=== PATIENT | female | born 2000 | race Caucasian/White ===

== ENCOUNTER 2020-08-29 18:20 | Emergency (ER) | payer MEDICAID ==
[~2020-08-29] VITALS: Ht 167.6 cm; Wt 63.5 kg
--- NOTE | 2020-08-29 19:14 | NUR ---
patient came in to the er c/o LUQ abdominal pain since last night. On room air, breathing evenly and unlabored. Kept comfortable, will continue to monitor accordingly.
[2020-08-29 19:31] LABS: BASOPHILS # (AUTO) 0.1 /CMM (0.0-0.2); BASOPHILS % (AUTO) 1.6 % (0.0-2.0); HEMATOCRIT 39 % (33-45); HEMOGLOBIN 12.9 g/dL (11.5-14.8); LYMPHOCYTES # (AUTO) 1.6 /CMM (0.8-4.8); LYMPHOCYTES % (AUTO) 18.4 % (20.0-44.0); MEAN CORPUSCULAR HGB CONC 33 g/dl (31.0-36.0); MEAN CORPUSCULAR VOLUME 83 fL (82-100); MONOCYTES # (AUTO) 0.6 /CMM (0.1-1.30); MONOCYTES % (AUTO) 6.7 % (2.0-12.0); NEUTROPHILS # (AUTO) 6.2 /CMM (1.8-8.9); NEUTROPHILS % (AUTO) 72.3 % (43.0-81.0); PLATELET COUNT (AUTO) 273 /CMM (150-450); RED BLOOD CELL COUNT(AUTO) 4.72 MIL/uL (4.0-5.2); WHITE BLOOD COUNT (AUTO) 8.6 K/uL (4.3-11.0)
[2020-08-29 19:37] LABS: CALCIUM, SERUM 9.3 mg/dL (8.5-10.1); CREATININE 0.8 mg/dL (0.6-1.3); POTASSIUM 4.2 mmol/L (3.5-5.1)
[2020-08-29 19:43] LABS: ALBUMIN 4.2 g/dL (3.4-5.0); BILIRUBIN,DIRECT 0.1 mg/dL (0.0-0.2); BILIRUBIN,TOTAL 0.5 mg/dL (0.2-1.0); TOTAL PROTEIN, SERUM 8.3 g/dL (6.4-8.2)
[2020-08-29 20:04] LABS: BILIRUBIN,URINE Negative (NEGATIVE); COLOR,URINE YELLOW (YELLOW); LEUKOCYTE ESTERASE ,URINE Small (NEGATIVE); NITRITE, URINE Negative (NEGATIVE); PROTEIN,URINE Negative (NEGATIVE); UGLUCOSE Negative (NEGATIVE); UROBILINOGEN,URINE 0.2 EU/dL (0.2)
[2020-08-29 20:05] LABS: BACTERIA,URINE 1+ /HPF (None Seen); SQUAMOUS EPITHELIAL CELL,UR Few /HPF (None Seen)
[2020-08-29] MEDS ORDERED: PHEN-705 PO (20:17)
[2020-08-29] MEDS ORDERED: CEPH500C2 PO (20:17)
--- NOTE | 2020-08-29 20:39 | NUR ---
Patient discharged to home in stable condition. Written and verbal after care instructions given. Patient verbalizes understanding of instruction.Patient is awake and alert to self, day, and place. pt tambulatory with a steady gait
[2020-08-29 21:50] VITALS: BP 119/60
== END 2020-08-29 21:50 | disposition home or self-care (01) ==
LOC: ER 18:27
DX: N39.0 Urinary tract infection, site not specified (principal); Z79.899 Other long term (current) drug therapy
CPT/HCPCS: 36415; 71045-TC; 80048-TC; 80076-TC; 81001; 83690-TC; 84703-TC; 85025-TC; 87086-TC

== ENCOUNTER 2020-09-07 14:45 | Emergency (ER) | payer MEDICAID ==
[~2020-09-07] VITALS: Ht 167.6 cm; Wt 68.0 kg
[~2020-09-07 14:45] MED LIST: CEPH500C2 PO; PHEN-705 PO
--- NOTE | 2020-09-07 15:02 | NUR ---
BIBS FROM HOME TO ER BED 16. AAOX4. NOT IN RESP DISTRESS. AMBULATORY. CAME IN FOR CP AND PALPITATION FOR THE PAST WEEK. CP IS MID SETERNAL NON RADIATING PRESSURE. PT IS NOTED WITH HR OF 112. PT DO APPEAR ANXIOUS. AWAITING MD FOR EVAL.
[2020-09-07] MEDS ORDERED: LORAZEPAM INJ 2 MG/ML VIAL ONE (16:22)
[2020-09-07] MEDS ORDERED: LORAZEPAM INJ 2 MG/ML VIAL IM ONE (16:30)
[2020-09-07] MEDS ORDERED: POLY17PO4 PO (16:53)
[2020-09-07] MEDS ORDERED: ESCI5TAB PO (16:53)
[2020-09-07] MEDS ORDERED: DOCU-141 PO (16:53)
--- NOTE | 2020-09-07 16:59 | NUR ---
Patient discharged to home in stable condition. Written and verbal after care instructions given. Patient verbalizes understanding of instruction. Pt ambulatory with a steady gait
[2020-09-07 17:00] VITALS: BP 126/83
[2020-09-08] MEDS ORDERED: LORA-259 PO (18:18)
== END 2020-09-07 17:00 | disposition home or self-care (01) ==
LOC: ER 14:48
DX: F41.0 Panic disorder [episodic paroxysmal anxiety] (principal); K59.00 Constipation, unspecified; Z79.899 Other long term (current) drug therapy
CPT/HCPCS: 93005; 96372; 99283; J2060

== ENCOUNTER 2020-09-08 16:28 | Emergency (ER) | payer MEDICAID ==
[~2020-09-08] VITALS: Ht 167.6 cm; Wt 68.0 kg
[~2020-09-08 16:28] MED LIST changes: +DOCU-141 PO; +ESCI5TAB PO; +POLY17PO4 PO
--- NOTE | 2020-09-08 17:00 | NUR ---
CHEST PAIN W/ SOB & NAUSEA X 4 DAYS. PT AAOX4, VSS. RR EVEN & UNLABORED. DENIES DIZZINESS, WEAKNESS AT THIS TIME. PLACED ON ANTIQUE FURNITURE RESTORER, SR. PT SEEN & EVAL'D BY DR. ROSALES. WILL CONT TO MONITOR.
[2020-09-08 17:12] LABS: BASOPHILS % (AUTO) 0.5 % (0.0-2.0); EOSINOPHILS % (AUTO) 0.4 % (0.0-6.0); HEMATOCRIT 41 % (33-45); HEMOGLOBIN 13.7 g/dL (11.5-14.8); LYMPHOCYTES % (AUTO) 25.9 % (20.0-44.0); MEAN CORPUSCULAR HGB CONC 33 g/dl (31.0-36.0); MEAN CORPUSCULAR VOLUME 83 fL (82-100); MONOCYTES # (AUTO) 0.6 /CMM (0.1-1.30); MONOCYTES % (AUTO) 7.4 % (2.0-12.0); NEUTROPHILS % (AUTO) 65.8 % (43.0-81.0); PLATELET COUNT (AUTO) 247 /CMM (150-450); RED BLOOD CELL COUNT(AUTO) 5.02 MIL/uL (4.0-5.2); WHITE BLOOD COUNT (AUTO) 7.7 K/uL (4.3-11.0)
[2020-09-08 17:32] LABS: CARBON DIOXIDE 26 mmol/L (21-32); CHLORIDE 103 mmol/L (98-107); CREATININE 0.9 mg/dL (0.6-1.3); GLUCOSE 84 mg/dL (74-106); POTASSIUM 3.8 mmol/L (3.5-5.1); SODIUM SERUM 140 mmol/L (136-145); UREA NITROGEN, BLOOD 9 mg/dL (7-18)
--- NOTE | 2020-09-08 17:55 | NUR ---
COVID TEST DONE & SENT TO LAB.
[2020-09-08] MEDS ORDERED: LORAZEPAM 1 MG TABLET ONE (18:13)
[2020-09-08] MEDS ORDERED: LORA-259 PO (18:18)
[2020-09-08 18:26] VITALS: BP 120/85
[2020-09-08] MEDS ORDERED: LORAZEPAM 1 MG TABLET PO ONE (18:30)
== END 2020-09-08 18:27 | disposition home or self-care (01) ==
LOC: ER 16:36
DX: R06.00 Dyspnea, unspecified (principal); Z20.822 Contact with and (suspected) exposure to COVID-19; F41.9 Anxiety disorder, unspecified; Z86.16 Personal history of COVID-19; M41.9 Scoliosis, unspecified
CPT/HCPCS: 36415; 71045; 80048; 84484; 85025; 93005; 99285; C9803; U0003

== ENCOUNTER 2020-09-10 16:56 | Emergency (ER) | payer MEDICAID ==
[~2020-09-10] VITALS: Ht 170.2 cm; Wt 74.8 kg
[~2020-09-10 16:56] MED LIST changes: +LORA-259 PO
--- NOTE | 2020-09-10 16:56 | NUR ---
PT BIB SELF C/O LOWER ABDOMINAL PAIN FOR 1 WEEK, PT IS AAOX4, NOT IN RESPIRATORY DISTRESS, V/S STABLE, KEPT RESTED AND COMFORTABLE. WILL CONTINUE TO MONITOR.
--- NOTE | 2020-09-10 17:13 | NUR ---
SEEN AND EXAMINED BY COLBY GAMA.
--- NOTE | 2020-09-10 17:23 | NUR ---
IV LINE ESTABLISHED BLOOD DRAWN AND SENT TO LAB.
--- NOTE | 2020-09-10 17:27 | NUR ---
URINE SPECIMEN COLLECTED AND SENT TO LAB.
[2020-09-10] MEDS ORDERED: IV NS 0.9% 1,000 ML BAG IV ONE (17:30)
[2020-09-10 17:43] LABS: BASOPHILS % (AUTO) 0.5 % (0.0-2.0); EOSINOPHILS % (AUTO) 0.3 % (0.0-6.0); HEMATOCRIT 39 % (33-45); HEMOGLOBIN 12.7 g/dL (11.5-14.8); LYMPHOCYTES # (AUTO) 1.7 /CMM (0.8-4.8); LYMPHOCYTES % (AUTO) 21.4 % (20.0-44.0); MEAN CORPUSCULAR HGB CONC 33 g/dl (31.0-36.0); MEAN CORPUSCULAR VOLUME 83 fL (82-100); MONOCYTES # (AUTO) 0.5 /CMM (0.1-1.30); MONOCYTES % (AUTO) 6.4 % (2.0-12.0); NEUTROPHILS # (AUTO) 5.7 /CMM (1.8-8.9); NEUTROPHILS % (AUTO) 71.4 % (43.0-81.0); PLATELET COUNT (AUTO) 210 /CMM (150-450); RED BLOOD CELL COUNT(AUTO) 4.71 MIL/uL (4.0-5.2)
[2020-09-10 17:52] LABS: CREATININE 0.9 mg/dL (0.6-1.3)
[2020-09-10 18:05] LABS: ALBUMIN 3.9 g/dL (3.4-5.0); BILIRUBIN,DIRECT 0.1 mg/dL (0.0-0.2); BILIRUBIN,TOTAL 0.6 mg/dL (0.2-1.0); TOTAL PROTEIN, SERUM 7.7 g/dL (6.4-8.2)
--- NOTE | 2020-09-10 18:25 | NUR ---
PT IS WHEELED TO CT SCAN VIA [facility].
[2020-09-10] MEDS ORDERED: IOHEXOL-300 100 ML VIAL IV ONE (18:27)
[2020-09-10] MEDS ORDERED: CT SWABBABLE VALVE TRANS SET 1 EA INFUS.SET MC ONE (18:27)
[2020-09-10] MEDS ORDERED: IV NS 0.9% 250 ML IV ONE (18:27)
--- NOTE | 2020-09-10 19:00 | NUR ---
CHANEL GAMA AT BEDSIDE FOR PELVIC EXAM
--- NOTE | 2020-09-10 19:09 | NUR ---
REPORT GIVEN TO ROSA GRIFFIN FOR ABRIL
[2020-09-10] MEDS ORDERED: FAMO-131 PO (19:10)
[2020-09-10] MEDS ORDERED: ONDA4TAB11 PO (19:10)
--- NOTE | 2020-09-10 19:10 | NUR ---
SPECIMEN SENT TO LAB
[2020-09-10 19:29] VITALS: BP 129/71
--- NOTE | 2020-09-10 19:29 | NUR ---
Patient discharged to home in stable condition. Written and verbal after care instructions given. Patient verbalizes understanding of instruction and RX. Pt ambulated out of ED. VSS.
--- NOTE | 2020-09-10 19:29 | NUR ---
IV removed. Catheter intact and site benign. Pressure and 4x4 applied to site. No bleeding noted.
== END 2020-09-10 19:29 | disposition home or self-care (01) ==
LOC: ER 16:58
DX: N72 Inflammatory disease of cervix uteri (principal); K29.70 Gastritis, unspecified, without bleeding; N83.8 Other noninflammatory disorders of ovary, fallopian tube and broad ligament; F10.10 Alcohol abuse, uncomplicated; Y90.9 Presence of alcohol in blood, level not specified; Z79.899 Other long term (current) drug therapy
CPT/HCPCS: 74177; 76856; 80048; 80076; 84702; 84703; 85025; 87210; 87491 ×2; 87591 ×2; 96360; 99285; J7030 ×2; J7050; Q9967

== ENCOUNTER 2020-10-12 16:14 | Emergency (ER) | payer MEDICAID ==
[~2020-10-12] VITALS: Ht 167.6 cm; Wt 63.5 kg
[~2020-10-12 16:14] MED LIST changes: +FAMO-131 PO; +ONDA4TAB11 PO
[2020-10-12 16:49] VITALS: BP 148/86
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
--- NOTE | 2020-10-12 17:12 | NUR ---
CALLED [phone] PT STATES THAT SHE DOES NOT WISH TO REPORT. [employer] ADVISED TO CALL BACK IF SHE CHANGES HER MIND.
[2020-10-12] MEDS ORDERED: PHEN15SP NS (17:22)
--- NOTE | 2020-10-12 18:03 | NUR ---
Patient discharged to home in stable condition. Written and verbal after care instructions given. Patient verbalizes understanding of instruction. Pt ambulatory with a steady gait
== END 2020-10-12 18:05 | disposition home or self-care (01) ==
LOC: ER 16:19
DX: S00.83XA Contusion of other part of head, initial encounter (principal); R04.0 Epistaxis; Z79.899 Other long term (current) drug therapy; W22.8XXA Striking against or struck by other objects, initial encounter; Y93.89 Activity, other specified; Y92.89 Other specified places as the place of occurrence of the external cause; Y99.8 Other external cause status

== ENCOUNTER 2020-11-12 23:00 | Emergency (ER) | payer MEDICAID ==
[~2020-11-12] VITALS: Ht 167.6 cm; Wt 65.8 kg
[2020-11-12 23:00] VITALS: BP 127/74
[~2020-11-12 23:00] MED LIST changes: +PHEN15SP NS
[2020-11-12] MEDS ORDERED: ONDANSETRON 4 MG TAB.RAPDIS ONE (23:43)
[2020-11-12] MEDS ORDERED: CLIN300C12 PO (23:44)
[2020-11-12] MEDS ORDERED: ONDA4TAB5 PO (23:44)
[2020-11-13] MEDS ORDERED: ONDANSETRON 4 MG TAB.RAPDIS SL ONE
[2020-11-13] MEDS ORDERED: LORA10TA7 PO (20:30)
== END 2020-11-12 23:51 | disposition home or self-care (01) ==
LOC: ER 23:01
DX: R11.0 Nausea (principal); K08.89 Other specified disorders of teeth and supporting structures; Z79.899 Other long term (current) drug therapy
CPT/HCPCS: 99283; Q0162

== ENCOUNTER 2020-11-13 19:20 | Emergency (ER) | payer MEDICAID ==
[~2020-11-13] VITALS: Ht 167.6 cm; Wt 65.8 kg
[2020-11-13 19:20] VITALS: BP 118/72
[~2020-11-13 19:20] MED LIST changes: +CLIN300C12 PO; +ONDA4TAB5 PO
[2020-11-13] MEDS ORDERED: LORA10TA7 PO (20:30)
--- NOTE | 2020-11-13 20:50 | NUR ---
Patient discharged to home in stable condition. Written and verbal after care instructions given. Patient verbalizes understanding of instruction. Pt ambulatory with a steady gait
== END 2020-11-13 20:52 | disposition home or self-care (01) ==
LOC: ER 19:22
DX: J02.9 Acute pharyngitis, unspecified (principal); Z79.899 Other long term (current) drug therapy

== ENCOUNTER 2020-12-09 20:03 | Emergency (ER) | payer MEDICAID ==
[~2020-12-09] VITALS: Ht 167.6 cm; Wt 68.0 kg
[~2020-12-09 20:03] MED LIST changes: +LORA10TA7 PO
[2020-12-09 20:05] VITALS: BP 110/63
[2020-12-09 20:56] LABS: BILIRUBIN,URINE Negative (NEGATIVE); COLOR,URINE YELLOW (YELLOW); LEUKOCYTE ESTERASE ,URINE Negative (NEGATIVE); NITRITE, URINE Negative (NEGATIVE); PROTEIN,URINE Negative (NEGATIVE); UGLUCOSE Negative (NEGATIVE); UROBILINOGEN,URINE 0.2 EU/dL (0.2)
[2020-12-09] MEDS ORDERED: ONDANSETRON HCL 4 MG/5 ML SOLUTION PO ONE (21:00)
[2020-12-09] MEDS ORDERED: SULFAMETH/TRIMETH 800/160 MG 1 UDTAB TABLET PO ONE (21:00)
[2020-12-09] MEDS ORDERED: ONDANSETRON 4 MG TAB.RAPDIS ONE (21:03)
[2020-12-09] MEDS ORDERED: SULFAMETH/TRIMETH 800/160 MG 1 UDTAB TABLET ONE (21:04)
[2020-12-09 21:07] LABS: BACTERIA,URINE Rare /HPF (None Seen); WBC,URINE 0-2 /HPF (0-3)
[2020-12-09] MEDS ORDERED: ONDA4TAB11 PO (21:22)
[2020-12-09] MEDS ORDERED: SULF1TAB48 PO (21:22)
== END 2020-12-09 21:34 | disposition home or self-care (01) ==
LOC: ER 20:09
DX: N12 Tubulo-interstitial nephritis, not specified as acute or chronic (principal); Z79.899 Other long term (current) drug therapy
CPT/HCPCS: 81001; 84703; 99283; Q0162

== ENCOUNTER 2021-01-29 14:47 | Emergency (ER) | payer MEDICAID ==
[~2021-01-29] VITALS: Ht 167.6 cm; Wt 65.8 kg
[~2021-01-29 14:47] MED LIST changes: +SULF1TAB48 PO
[2021-01-29 15:03] VITALS: BP 137/73
[2021-01-29 16:05] LABS: BILIRUBIN,URINE NEGATIVE (NEGATIVE); COLOR,URINE YELLOW (YELLOW); LEUKOCYTE ESTERASE ,URINE SMALL (NEGATIVE); NITRITE, URINE NEGATIVE (NEGATIVE); PROTEIN,URINE NEGATIVE (NEGATIVE); UGLUCOSE NEGATIVE (NEGATIVE); UROBILINOGEN,URINE 0.2 EU/dL (0.2)
[2021-01-29 16:12] LABS: BACTERIA,URINE RARE /HPF (None Seen); RBC,URINE 0-2 /HPF (0-2)
--- NOTE | 2021-01-29 16:29 | NUR ---
Patient discharged to home in stable condition. Written and verbal after care instructions given. Patient verbalizes understanding of instruction.
== END 2021-01-29 16:29 | disposition home or self-care (01) ==
LOC: ER 14:53
DX: B27.90 Infectious mononucleosis, unspecified without complication (principal); R10.12 Left upper quadrant pain; Z79.899 Other long term (current) drug therapy
CPT/HCPCS: 81001; 87086-TC

== ENCOUNTER 2021-02-10 17:00 | Emergency (ER) | payer MEDICAID ==
[~2021-02-10] VITALS: Ht 165.1 cm; Wt 65.8 kg
--- NOTE | 2021-02-10 17:31 | NUR ---
The patient is bibs for c/o lower abdominal pain/pelvic. The patient states having an ovarian cyst. Rates pain 4/10. In room air and denies SOB. Respiration regular and unlabored. Will continue to monitor the patient.
[2021-02-10 17:47] LABS: BILIRUBIN,URINE Negative (NEGATIVE); COLOR,URINE YELLOW (YELLOW); LEUKOCYTE ESTERASE ,URINE Small (NEGATIVE); NITRITE, URINE Negative (NEGATIVE); PH,URINE 7.5 (5.0-8.0); PROTEIN,URINE Negative (NEGATIVE); UGLUCOSE Negative (NEGATIVE)
[2021-02-10 17:51] LABS: BASOPHILS % (AUTO) 0.4 % (0.0-2.0); CALCIUM, SERUM 8.5 mg/dL (8.5-10.1); CREATININE 0.7 mg/dL (0.6-1.3); EOSINOPHILS % (AUTO) 1.2 % (0.0-6.0); HEMATOCRIT 36 % (33-45); HEMOGLOBIN 12.1 g/dL (11.5-14.8); LYMPHOCYTES % (AUTO) 23.6 % (20.0-44.0); MEAN CORPUSCULAR HGB CONC 34 g/dl (31.0-36.0); MEAN CORPUSCULAR VOLUME 87 fL (82-100); MONOCYTES # (AUTO) 0.6 K/uL (0.1-1.30); MONOCYTES % (AUTO) 7.4 % (2.0-12.0); NEUTROPHILS # (AUTO) 5.8 K/uL (1.8-8.9); NEUTROPHILS % (AUTO) 67.4 % (43.0-81.0); PLATELET COUNT (AUTO) 213 K/uL (150-450); POTASSIUM 3.7 mmol/L (3.5-5.1); RED BLOOD CELL COUNT(AUTO) 4.07 MIL/uL (4.0-5.2); WHITE BLOOD COUNT (AUTO) 8.7 K/uL (4.3-11.0)
[2021-02-10 18:03] LABS: BACTERIA,URINE Many /HPF (None Seen); SQUAMOUS EPITHELIAL CELL,UR Many /HPF (None Seen)
[2021-02-10 18:04] LABS: RBC,URINE 0-2 /HPF (0-2)
--- NOTE | 2021-02-10 19:05 | NUR ---
REC'D REPORT FROM LIA. GRIFFIN FOR ABRIL
--- NOTE | 2021-02-10 19:24 | NUR ---
CALLED CHRISTO TO HAVE IMAGES READ
[2021-02-10] MEDS ORDERED: CEPH500C2 PO (19:39)
--- NOTE | 2021-02-10 19:55 | NUR ---
Patient discharged to home in stable condition. Written and verbal after care instructions given. Patient verbalizes understanding of instruction. Pt ambulatory with a steady gait
[2021-02-10 20:01] VITALS: BP 115/70
== END 2021-02-10 19:55 | disposition home or self-care (01) ==
LOC: ER 17:04
DX: O20.0 Threatened abortion (principal); N39.0 Urinary tract infection, site not specified; Z79.899 Other long term (current) drug therapy; Z3A.01 Less than 8 weeks gestation of pregnancy
CPT/HCPCS: 36415; 76805-TC; 80048-TC; 81001; 84702-TC; 85025-TC; 87086-TC

== ENCOUNTER 2021-02-18 02:10 | Emergency (ER) | payer MEDICAID ==
[~2021-02-18] VITALS: Ht 165.1 cm; Wt 65.8 kg
[2021-02-18 02:10] VITALS: BP 114/68
== END 2021-02-18 04:50 | disposition home or self-care (01) ==
LOC: ER 02:17
DX: J39.2 Other diseases of pharynx (principal); R10.9 Unspecified abdominal pain; Z79.899 Other long term (current) drug therapy

== ENCOUNTER 2021-03-31 17:44 | Emergency (ER) | payer BC, OTHER ==
[~2021-03-31] VITALS: Ht 167.6 cm; Wt 65.8 kg
[2021-03-31 18:39] VITALS: BP 133/75
[2021-03-31] MEDS ORDERED: AMOX-430 PO (19:11)
== END 2021-03-31 19:17 | disposition home or self-care (01) ==
LOC: ER 17:46
DX: K08.89 Other specified disorders of teeth and supporting structures (principal); F10.10 Alcohol abuse, uncomplicated; Y90.9 Presence of alcohol in blood, level not specified; Z79.899 Other long term (current) drug therapy

== ENCOUNTER 2021-05-27 20:16 | Emergency (ER) | payer BC, OTHER ==
[~2021-05-27] VITALS: Ht 167.6 cm; Wt 71.7 kg
[~2021-05-27 20:16] MED LIST changes: +AMOX-430 PO
--- NOTE | 2021-05-27 20:40 | NUR ---
PT BIBS C/O INTERMITTENT ABD PAIN 01/21, PT IS ON MONITOR, VSS.
[2021-05-27 20:51] LABS: BILIRUBIN,URINE Negative (NEGATIVE); COLOR,URINE YELLOW (YELLOW); LEUKOCYTE ESTERASE ,URINE Small (NEGATIVE); NITRITE, URINE Negative (NEGATIVE); PH,URINE 5.5 (5.0-8.0); PROTEIN,URINE Negative (NEGATIVE); UGLUCOSE Negative (NEGATIVE); UROBILINOGEN,URINE 0.2 EU/dL (0.2)
[2021-05-27 21:07] LABS: BACTERIA,URINE None seen /HPF (None Seen); MUCUS,URINE Few /LPF (None Seen); RBC,URINE 0-2 /HPF (0-2); SQUAMOUS EPITHELIAL CELL,UR Moderate /HPF (None Seen); URINE AMORPHOUS URATE Few /HPF (None Seen)
[2021-05-27] MEDS ORDERED: CEPH500T PO (22:08)
[2021-05-27 22:18] VITALS: BP 133/70
--- NOTE | 2021-05-27 22:18 | NUR ---
Patient discharged to home in stable condition. Written and verbal after care instructions given. Patient verbalizes understanding of instruction.
== END 2021-05-27 22:18 | disposition home or self-care (01) ==
LOC: ER 20:18
DX: N39.0 Urinary tract infection, site not specified (principal); Z79.899 Other long term (current) drug therapy
CPT/HCPCS: 76856-TC; 81001; 84703-TC; 87086-TC

== ENCOUNTER 2021-08-03 18:47 | Emergency (ER) | payer BC, MEDICAID, OTHER ==
[~2021-08-03] VITALS: Ht 167.6 cm; Wt 63.5 kg
[~2021-08-03 18:47] MED LIST changes: +CEPH500T PO
--- NOTE | 2021-08-03 19:07 | NUR ---
PT BIBSELF FROM HOME L SIDED SHARP HEAD PAIN SINCE AST NIGHT, +NAUSEA. TENSION HEADACHE X 1WEEK
[2021-08-03] MEDS ORDERED: KETOROLAC TROMETHAMINE INJ 30 MG/ML VIAL IM ONE (20:30)
[2021-08-03] MEDS ORDERED: KETOROLAC TROMETHAMINE INJ 30 MG/ML VIAL ONE (20:38)
[2021-08-03] MEDS ORDERED: IBUPROFEN 600 MG TABLET ONE (20:43)
[2021-08-03] MEDS ORDERED: IBUPROFEN 600 MG TABLET PO ONE (21:00)
[2021-08-03 21:14] LABS: BILIRUBIN,URINE NEGATIVE (NEGATIVE); COLOR,URINE YELLOW (YELLOW); LEUKOCYTE ESTERASE ,URINE SMALL (NEGATIVE); NITRITE, URINE NEGATIVE (NEGATIVE); PROTEIN,URINE NEGATIVE (NEGATIVE); UGLUCOSE NEGATIVE (NEGATIVE); UROBILINOGEN,URINE 0.2 EU/dL (0.2)
[2021-08-03 21:33] LABS: BACTERIA,URINE 1+ /HPF (None Seen); RBC,URINE 0-2 /HPF (0-2)
[2021-08-03] MEDS ORDERED: AMOX-430 PO (22:00)
[2021-08-03] MEDS ORDERED: IBUP-1955 PO (22:01)
--- NOTE | 2021-08-03 22:24 | NUR ---
Patient discharged to home in stable condition. Written and verbal after care instructions given. Patient verbalizes understanding of instruction. PT ambulatory with a steady gait
[2021-08-03 22:26] VITALS: BP 126/77
--- NOTE | 2021-08-04 00:01 | NUR ---
Alex quezada in [facility] - 08/04/21 at 0001 by STACEY Patient discharged to home in stable condition. Written and verbal after care instructions given. Patient verbalizes understanding of instruction.
== END 2021-08-04 00:02 | disposition home or self-care (01) ==
LOC: ER 18:56
DX: G44.209 Tension-type headache, unspecified, not intractable (principal); N39.0 Urinary tract infection, site not specified; K02.9 Dental caries, unspecified; Z20.822 Contact with and (suspected) exposure to COVID-19; Z79.899 Other long term (current) drug therapy
CPT/HCPCS: 81001; 84703; 87086; 87426; 99283; C9803; J1885

== ENCOUNTER 2021-08-13 11:46 | Emergency (ER) | payer MEDICAID ==
[~2021-08-13] VITALS: Ht 167.6 cm; Wt 63.5 kg
[~2021-08-13 11:46] MED LIST changes: +IBUP-1955 PO
--- NOTE | 2021-08-13 12:18 | NUR ---
URINE SPECIMEN COLLECTED AND SENT TO LAB.
--- NOTE | 2021-08-13 12:22 | NUR ---
AT BEDSIDE FOR EVAL.
[2021-08-13] MEDS ORDERED: IV NS 0.9% 1,000 ML BAG IV ONE (12:30)
[2021-08-13] MEDS ORDERED: ONDANSETRON HCL/PF 4 MG/2 ML VIAL IVP ONE (12:30)
[2021-08-13] MEDS ORDERED: ONDANSETRON HCL/PF 4 MG/2 ML VIAL ONE (12:30)
[2021-08-13 12:38] LABS: BILIRUBIN,URINE NEGATIVE (NEGATIVE); COLOR,URINE YELLOW (YELLOW); LEUKOCYTE ESTERASE ,URINE TRACE (NEGATIVE); NITRITE, URINE NEGATIVE (NEGATIVE); PH,URINE 8.5 (5.0-8.0); PROTEIN,URINE TRACE mg/dl (NEGATIVE); UGLUCOSE NEGATIVE (NEGATIVE); UROBILINOGEN,URINE 0.2 EU/dL (0.2)
[2021-08-13 12:50] LABS: BASOPHILS % (AUTO) 0.4 % (0.0-2.0); EOSINOPHILS % (AUTO) 0.4 % (0.0-6.0); HEMATOCRIT 39 % (33-45); HEMOGLOBIN 13.1 g/dL (11.5-14.8); LYMPHOCYTES % (AUTO) 19.1 % (20.0-44.0); MEAN CORPUSCULAR HGB CONC 34 g/dl (31.0-36.0); MEAN CORPUSCULAR VOLUME 88 fL (82-100); MONOCYTES # (AUTO) 0.9 K/uL (0.1-1.30); MONOCYTES % (AUTO) 8.4 % (2.0-12.0); NEUTROPHILS # (AUTO) 7.7 K/uL (1.8-8.9); NEUTROPHILS % (AUTO) 71.7 % (43.0-81.0); PLATELET COUNT (AUTO) 234 K/uL (150-450); RED BLOOD CELL COUNT(AUTO) 4.43 MIL/uL (4.0-5.2); WHITE BLOOD COUNT (AUTO) 10.7 K/uL (4.3-11.0)
[2021-08-13 12:53] LABS: BACTERIA,URINE Few /HPF (None Seen); RBC,URINE NONE SEEN /HPF (0-2); SQUAMOUS EPITHELIAL CELL,UR Many /HPF (None Seen)
[2021-08-13 13:04] LABS: CREATININE 0.8 mg/dL (0.6-1.3); POTASSIUM 3.8 mmol/L (3.5-5.1)
[2021-08-13 13:08] LABS: ALBUMIN 3.6 g/dL (3.4-5.0); BILIRUBIN,DIRECT 0.1 mg/dL (0.0-0.2); BILIRUBIN,TOTAL 0.4 mg/dL (0.2-1.0); TOTAL PROTEIN, SERUM 7.7 g/dL (6.4-8.2)
[2021-08-13 13:19] LABS: WBC,URINE 0-2 /HPF (0-3)
[2021-08-13] MEDS ORDERED: ACETAMINOPHEN ES 500 MG TABLET ONE (13:21)
[2021-08-13] MEDS ORDERED: LORAZEPAM 1 MG TABLET ONE (13:21)
[2021-08-13] MEDS ORDERED: ACETAMINOPHEN 325 MG TABLET PO ONE (13:30)
[2021-08-13] MEDS ORDERED: LORAZEPAM 1 MG TABLET PO ONE ×2 (13:30)
--- NOTE | 2021-08-13 14:56 | NUR ---
ADAN, BOYFRIEND , , CALLED
[2021-08-13 15:10] VITALS: BP 131/72
--- NOTE | 2021-08-13 15:10 | NUR ---
IV removed. Catheter intact and site benign. Pressure and 4x4 applied to site. No bleeding noted.Patient discharged to home in stable condition. Written and verbal after care instructions given. Patient verbalizes understanding of instruction.
== END 2021-08-13 15:11 | disposition home or self-care (01) ==
LOC: ER 11:47
DX: F10.129 Alcohol abuse with intoxication, unspecified (principal); R51.9 Headache, unspecified; F10.139 Alcohol abuse with withdrawal, unspecified; R00.8 Other abnormalities of heart beat; M41.9 Scoliosis, unspecified; Z79.1 Long term (current) use of non-steroidal anti-inflammatories (NSAID); Z79.83 Long term (current) use of bisphosphonates; Z79.52 Long term (current) use of systemic steroids; Z79.899 Other long term (current) drug therapy; Y90.9 Presence of alcohol in blood, level not specified
CPT/HCPCS: 36415; 80048; 80076; 81001; 83690; 84703; 85025; 96361; 96374; 99283; J2405

== ENCOUNTER 2021-10-25 23:41 | Emergency (ER) | payer MEDICAID ==
[~2021-10-25] VITALS: Ht 167.6 cm; Wt 68.0 kg
[2021-10-26 00:34] VITALS: BP 124/71
== END 2021-10-26 01:18 | disposition home or self-care (01) ==
LOC: EDUNIT# 23:41 → ER 23:48
DX: R20.2 Paresthesia of skin (principal); Z86.79 Personal history of other diseases of the circulatory system; Z87.39 Personal history of other diseases of the musculoskeletal system and connective tissue; Z60.2 Problems related to living alone; Z79.1 Long term (current) use of non-steroidal anti-inflammatories (NSAID); Z79.899 Other long term (current) drug therapy

== ENCOUNTER 2021-12-15 21:41 | Emergency (ER) | payer MEDICAID ==
[~2021-12-15] VITALS: Ht 167.6 cm; Wt 68.0 kg
--- NOTE | 2021-12-15 22:30 | NUR ---
TO ER BED 19. BIBS C/O FLANK, LOWER BACK AND LOWER ABDOMINAL PAIN WITH PAINFUL URINATION FOR 3 DAYS. URINE COLLECTED. CONNECTED TO MONITOR. AWAITING MD MILLER
--- NOTE | 2021-12-15 22:33 | NUR ---
URINE COLLECTED AND SENT TO LAB
[2021-12-15] MEDS ORDERED: IBUPROFEN 600 MG TABLET ONE (22:37)
[2021-12-15] MEDS ORDERED: IBUPROFEN 400 MG TABLET ONE (22:50)
[2021-12-15 22:56] LABS: BILIRUBIN,URINE NEGATIVE (NEGATIVE); COLOR,URINE YELLOW (YELLOW); LEUKOCYTE ESTERASE ,URINE SMALL (NEGATIVE); NITRITE, URINE NEGATIVE (NEGATIVE); PROTEIN,URINE NEGATIVE (NEGATIVE); UGLUCOSE NEGATIVE (NEGATIVE)
[2021-12-15] MEDS ORDERED: IBUPROFEN 600 MG TABLET PO ONE (23:00)
[2021-12-15] MEDS ORDERED: NITR100C6 PO (23:10)
[2021-12-15] MEDS ORDERED: IBUP-1955 PO (23:10)
--- NOTE | 2021-12-15 23:17 | NUR ---
Patient discharged to home in stable condition. Written and verbal after care instructions given. Patient verbalizes understanding of instruction.
[2021-12-15 23:19] VITALS: BP 135/70
[2021-12-16 06:38] LABS: BACTERIA,URINE 1+ /HPF (None Seen)
== END 2021-12-15 23:19 | disposition home or self-care (01) ==
LOC: ER 21:43
DX: N39.0 Urinary tract infection, site not specified (principal); R10.2 Pelvic and perineal pain; Z87.39 Personal history of other diseases of the musculoskeletal system and connective tissue; Z60.2 Problems related to living alone; Z79.899 Other long term (current) drug therapy
CPT/HCPCS: 81001; 84703-TC; 87086-TC

== ENCOUNTER 2022-04-19 02:27 | Emergency (ER) | payer MEDICAID ==
[~2022-04-19] VITALS: Ht 167.6 cm; Wt 68.0 kg
[~2022-04-19 02:27] MED LIST changes: +NITR100C6 PO
[2022-04-19 03:36] VITALS: BP 109/66
--- NOTE | 2022-04-19 03:42 | NUR ---
URINE COLLECTED AND SENT TO LAB
[2022-04-19] MEDS ORDERED: NITR100C6 PO (03:57)
[2022-04-19] MEDS ORDERED: PHEN-705 PO (03:57)
[2022-04-19 04:12] LABS: BILIRUBIN,URINE NEGATIVE (NEGATIVE); COLOR,URINE YELLOW (YELLOW); LEUKOCYTE ESTERASE ,URINE NEGATIVE (NEGATIVE); NITRITE, URINE NEGATIVE (NEGATIVE); PH,URINE 5.5 (5.0-8.0); PROTEIN,URINE NEGATIVE (NEGATIVE); UGLUCOSE NEGATIVE (NEGATIVE); UROBILINOGEN,URINE 0.2 EU/dL (0.2)
== END 2022-04-19 04:37 | disposition home or self-care (01) ==
LOC: ER 02:30
DX: R30.0 Dysuria (principal); Z60.2 Problems related to living alone; Z79.899 Other long term (current) drug therapy
CPT/HCPCS: 84703-TC

== ENCOUNTER 2022-08-08 14:28 | Emergency (ER) | payer MEDICAID ==
[~2022-08-08] VITALS: Ht 167.6 cm; Wt 81.2 kg
[2022-08-08 14:36] VITALS: BP 131/82
[2022-08-08] MEDS ORDERED: OFLO5DRO5 LEFT EAR (15:18)
--- NOTE | 2022-08-08 15:18 | NUR ---
PT D/C HOME W/ PRESCRIPTION IN STABLE CONDITION.
== END 2022-08-08 15:18 | disposition home or self-care (01) ==
LOC: ER 14:43
DX: H60.92 Unspecified otitis externa, left ear (principal); J06.9 Acute upper respiratory infection, unspecified; R05.9 Cough, unspecified; Z60.2 Problems related to living alone; Z79.899 Other long term (current) drug therapy
CPT/HCPCS: 71045-TC